=== PATIENT | female | born 1965 | race Two or more races ===

== ENCOUNTER 2025-03-31 16:00 | Emergency (ER) | payer OTHER ==
[~2025-03-31] VITALS: Ht 167.6 cm; Wt 107.0 kg
[2025-03-31] MEDS ORDERED: METFORMIN HCL1000 MG (17:16)
[2025-03-31] MEDS ORDERED: SYNTHROID50 MCG PO (17:17)
[2025-03-31] MEDS ORDERED: EZALLOR SPRINKL10 MG PO (17:17)
[2025-03-31] MEDS ORDERED: [UNRECOGNIZED DRUG - OTHER] (17:18)
[2025-03-31] MEDS ORDERED: MORPHINE SULFATE 2 MG/ML SYRINGE IV ONE (17:45)
[2025-03-31] MEDS ORDERED: 0.9 % SODIUM CHLORIDE 1,000 ML IV SCH (17:45)
[2025-03-31 19:18] LABS: ALT/SGPT 24.0 U/L (12-78); AST/SGOT 15.0 U/L (15-37); BILIRUBIN TOTAL 0.68 mg/dL (0.3-1.2); BUN CREA RATIO 21.0 (7.0-25.0); CREATININE SERUM 0.73 mg/dL (0.55-1.02); GFR 81.88; GLOBULINA 3.7 G/DL (2.4-3.5); GLUCOSE FASTING 94.0 mg/dL (65-100); OSMOLALITY SERUM 284.0 MOSM/KG (275-295)
[2025-03-31 19:34] LABS: BASO % 0.5 % (0.1-1.2); EOS # 0.40 (0.04-0.54); EOS % 3.5 % (0.7-7.0); LYMPH # 4.47 (1.18-3.74); LYMPH % 39.6 % (19.3-53.1); MEAN PLATELET VOLUME 10.20 fl (9.4-12.4); MONO # 0.71 (0.24-0.82); MONO % 6.3 % (4.7-12.5); NEUT # 5.62 (1.56-6.13); NEUT % 49.8 % (34.0-71.1); RED CELL DISTRIBUTION WIDTH 12.5 % (11.6-14.4)
== END 2025-04-01 02:12 | disposition home or self-care (01) ==
LOC: ER 16:01
PROVIDERS: General Practice
DX: G44.89 Other headache syndrome (principal); E11.9 Type 2 diabetes mellitus without complications; Z79.84 Long term (current) use of oral hypoglycemic drugs; I10 Essential (primary) hypertension; E03.9 Hypothyroidism, unspecified; Z88.6 Allergy status to analgesic agent